=== PATIENT | male | born 1965 | race Caucasian/White ===

== ENCOUNTER 2018-12-29 06:48 | Outpatient (CLI) | payer OTHER ==
--- NOTE | 2018-12-29 09:08 | ULT ---
GALLBLADDER ULTRASOUND: HISTORY: Abnormal liver function tests. COMPARISON: None. TECHNIQUE: Utilizing a multihertz transducer, sonographic imaging of the right upper quadrant is performed in th e longitudinal and transverse plane. FINDINGS: Pancreas is obscured by bowel gas. Increased echogenicity of the liver may be, in part, due to hepatic steatosis or hepatocellular disea se. Subsequent evaluation for hepatic masses and intrahepatic biliary dilatation is somewhat limited . Right hepatic lobe is 16.6 cm. Main portal vein is patent. Appropriate directional flow. Common bile duct is dilated measuring 0.8 cm. No sonographic evidence of cholelithiasis, gallbladder wall thickening, or pericholecystic fluid. Ne gative De Anda's sign. RIGHT KIDNEY: Normal cortical echotexture. No hydronephrosis. The right kidney measures 4.1 x 10.4 x 5.8 cm. Not e, there is right renal cortical thinning. IMPRESSION: Dilatation of the common bile duct which is greater than expected for patient's age. If there is con cern for choledocholithiasis, consider MRCP or ERCP. POS: [facility]
== END 2018-12-29 06:49 | disposition home or self-care (01) ==
LOC: BICULT 06:48
PROVIDERS: ATTEND Family Medicine
DX: R74.8 Abnormal levels of other serum enzymes (principal); K83.8 Other specified diseases of biliary tract
CPT/HCPCS: 76705

== ENCOUNTER 2018-12-30 14:25 | Outpatient (CLI) | payer OTHER | END 2018-12-30 14:26 | disposition home or self-care (01) | LOC: ULT 14:25 | PROVIDERS: ATTEND Family Medicine | DX: R68.3 Clubbing of fingers (principal); R74.8 Abnormal levels of other serum enzymes; I08.1 Rheumatic disorders of both mitral and tricuspid valves | CPT/HCPCS: 93306 ==

== ENCOUNTER 2019-01-23 08:16 | Outpatient (CLI) | payer OTHER ==
[2019-01-23] MEDS ORDERED: Gadobenate Dimeglumine 529 MG/1 ML (20ML VIAL) ONE (10:38)
--- NOTE | 2019-01-23 11:47 | MRI ---
MRI ABDOMEN WITH AND WITHOUT CONTRAST: HISTORY: Abnormal liver function tests. K83.9, disorder of bile duct. COMPARISON: Abdomen ultrasound 12/29/2018. TECHNIQUE: Multiplanar, multisequence MRI of the abdomen was performed prior to and after the intravenous admini stration of contrast. Three-D rendering was performed. FINDINGS: There is diffuse hepatic steatosis of the hepatic fracture 21.1% and hepatic fat percentage of 20.4%. 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 No intrahepatic or extrahepatic biliary dilatation. No cholelithiasis. No choledocholithiasis. On the MRCP images, no filling defect within the cystic duct, common bile duct, hepatic duct, or righ t or left intrahepatic ducts. There is no dilatation of the pancreatic duct. No abnormal enhancing mass. Multiple small renal cysts. No abnormal enhancing renal mass. No retroperitoneal adenopathy. Aortic contour is normal. The spleen is normal. IMPRESSION: 1. No intrahepatic or extrahepatic biliary dilatation. 2. Diffuse hepatic steatosis with quantification as above. 3. Multiple bilateral renal cysts. 4. No acute inflammatory process within the abdomen or pelvis. POS: [facility]
== END 2019-01-23 08:17 | disposition home or self-care (01) ==
LOC: BICMRI 08:16
PROVIDERS: ATTEND Internal Medicine
DX: K83.9 Disease of biliary tract, unspecified (principal); K70.0 Alcoholic fatty liver; F10.10 Alcohol abuse, uncomplicated; R68.3 Clubbing of fingers; R74.0 Nonspecific elevation of levels of transaminase and lactic acid dehydrogenase [LDH]; K76.0 Fatty (change of) liver, not elsewhere classified; N28.1 Cyst of kidney, acquired
CPT/HCPCS: 74183

== ENCOUNTER 2019-11-03 09:56 | Outpatient (CLI) | payer OTHER ==
--- NOTE | 2019-11-03 10:25 | CT ---
CT CHEST WITHOUT CONTRAST: LOW DOSE CT LUNG SCAN: HISTORY: Nicotine dependence. A 30+ year history of smoking. Weight loss. COMPARISON: None. TECHNIQUE: Low-dose screening lung CT is performed utilizing institutional protocol. FINDINGS: Lung screening specific (LUNG-RADS): Category 1. Negative. No suspicious masses or nodules. Potential significant incidentals (lung RADS category S): None. Pulmonary incidentals: Minimal emphysematous changes in the lung apices. Patchy areas of scarring and atelectasis throughout the lung. Other incidentals: There are coronary artery calcifications. IMPRESSION: 1. Lung-RADS category 1 - negative. 2. Lung-RADS category S: Negative. No new or unknown potential significant incidental findings requir ing urgent additional evaluation. 3. Other incidentals as above. Recommendation: Continued routine annual low-dose lung screening CT. Follow-up in one year. Transcribed Date/Time: 11/03/2019 10:45 AM
== END 2019-11-03 09:57 | disposition home or self-care (01) ==
LOC: CT 09:56
PROVIDERS: ATTEND Family Medicine
DX: Z12.2 Encounter for screening for malignant neoplasm of respiratory organs (principal); F17.210 Nicotine dependence, cigarettes, uncomplicated; I25.10 Atherosclerotic heart disease of native coronary artery without angina pectoris
CPT/HCPCS: G0297

== ENCOUNTER 2023-02-01 09:57 | Outpatient (CLI) | payer OTHER ==
[2023-02-01] MEDS ORDERED: Iopamidol 370 76% 100 ML VIAL ONE (14:57)
== END 2023-02-01 09:58 | disposition home or self-care (01) ==
LOC: BICCT 09:57
PROVIDERS: ATTEND Internal Medicine
DX: K86.3 Pseudocyst of pancreas (principal); K85.20 Alcohol induced acute pancreatitis without necrosis or infection; Z86.010 Personal history of colon polyps
CPT/HCPCS: 74170; Q9967

== ENCOUNTER 2023-06-20 16:02 | Outpatient (CLI) | payer OTHER | END 2023-06-20 16:03 | disposition home or self-care (01) | LOC: RAD 16:02 | PROVIDERS: ATTEND Family Medicine | DX: K62.5 Hemorrhage of anus and rectum (principal); K56.7 Ileus, unspecified | CPT/HCPCS: 74022 ==